=== PATIENT | male | born 1955 | race Caucasian/White ===

== ENCOUNTER 2021-12-26 17:48 | Emergency (ER) | payer MEDICARE | END 2021-12-26 19:13 | disposition home or self-care (01) | LOC: CSHERS 17:48 | DX: S91.332A Puncture wound without foreign body, left foot, initial encounter (principal); E11.40 Type 2 diabetes mellitus with diabetic neuropathy, unspecified; E11.9 Type 2 diabetes mellitus without complications; I10 Essential (primary) hypertension; I25.10 Atherosclerotic heart disease of native coronary artery without angina pectoris; W22.8XXA Striking against or struck by other objects, initial encounter | CPT/HCPCS: 90471 ==

== ENCOUNTER → 2023-02-16 | Day surgery (SDC) | payer MEDICARE, OTHER ==
[~2023-02-16] MED LIST: Acetylcysteine 800 MG/4 ML VIAL ONE; Adenosine 6 MG/2 ML VIAL ONE; Atropine Sulfate 0.4 mg/1 ml Vial ONE; Fentanyl 100 MCG/2 ML VIAL ONE; Heparin 10,000 UNITS/ 10 ML VIAL ONE; Iopamidol 300 61% 100 ML VIAL FS ONE; Lidocaine 1% (PF) 30 ML VIAL ONE; Lidocaine 1% MPF 2 ML VIAL ONE; Midazolam HCl 2 mg/2 ml Vial ONE; Nitroglycerin 50 MG/250 ML BOT 250 ML ONE; Sodium Chloride 0.9% 1,000 ML ONE; TICAGRELOR 90 MG TABLET ONE; Verapamil 5 MG/2 ML VIAL ONE
[2023-02-16 06:36] LABS: Hemoglobin 12.4 g/dL (13.5-17.5); MDiff Complete? YES; Mean Corpuscular HGB CONC 32.5 g/dL (32.0-36.0); Mean Corpuscular Hemoglobin 32.2 pg (27.0-33.0); Mean Platelet Volume 9.4 fl (7.4-10.4); Platelet Count 261 10x3/uL (150-450); RBC Distribution Width 14.5 % (11.5-14.5); Red Blood Cell (RBC) Count 3.85 10x6/uL (4.32-5.72); White Blood Cell (WBC) Count 7.1 10x3/uL (3.5-10.5)
[2023-02-16 06:47] LABS: PTT 25.9 sec (22.0-33.0); Prothrombin Time 10.9 sec (9.5-12.1)
[2023-02-16 06:50] LABS: Anion Gap 16 mmol/L (10-20); BUN (Urea Nitrogen) 44 mg/dL (8.4-25.7); Calc. Creatinine Clearance 0 mL/min (70-130); Calcium 9.6 mg/dL (7.8-10.44); Carbon Dioxide 15 mmol/L (23-31); Chloride 110 mmol/L (98-107); Estimated GFR 43; Glucose 263 mg/dL (80-115); Potassium 5.2 mmol/L (3.5-5.1); Sodium 136 mmol/L (136-145)
[2023-02-16 06:55] VITALS: TEMP 98
[2023-02-16 06:55] LABS: Band 4 % (5-11); Lymphocytes 6 % (21-51); Monocytes 2 % (0-10); Neutrophil 88 % (42-75)
[2023-02-16 06:56] LABS: Platelet Morphology Comment Appears Adequate; RBC Morphology Normal
== END ==
LOC: CSHSDC 05:53
PROVIDERS: ATTEND Specialist
DX: I25.10 Atherosclerotic heart disease of native coronary artery without angina pectoris (principal); E11.9 Type 2 diabetes mellitus without complications; I10 Essential (primary) hypertension; I65.21 Occlusion and stenosis of right carotid artery; E66.9 Obesity, unspecified; G47.00 Insomnia, unspecified; E78.00 Pure hypercholesterolemia, unspecified; K21.9 Gastro-esophageal reflux disease without esophagitis; F32.A Depression, unspecified; E78.2 Mixed hyperlipidemia; I70.293 Other atherosclerosis of native arteries of extremities, bilateral legs; Z91.041 Radiographic dye allergy status; Z79.82 Long term (current) use of aspirin; Z79.84 Long term (current) use of oral hypoglycemic drugs; Z79.899 Other long term (current) drug therapy; Z90.49 Acquired absence of other specified parts of digestive tract; Z98.61 Coronary angioplasty status
CPT/HCPCS: 80048; 85025; 85347 ×2; 85610; 85730; 93454; C1725; C1760; C1769 ×2; C1874 ×2; C1887; C9600; 92928; 93005; 99152; 99153; J0153; J0461; J1644; J2001; J2250; J3010; J7050; Q9967

== ENCOUNTER 2023-05-25 10:15 | Outpatient (CLI) | payer MEDICARE, OTHER | END 2023-05-25 10:16 | disposition home or self-care (01) | LOC: CSHRAD 10:15 | PROVIDERS: ATTEND Neurological Surgery | DX: S32.030D Wedge compression fracture of third lumbar vertebra, subsequent encounter for fracture with routine healing (principal) | CPT/HCPCS: 72100 ==

== ENCOUNTER 2023-06-20 10:46 | Outpatient (CLI) | payer MEDICARE, OTHER | END 2023-06-20 10:47 | disposition home or self-care (01) | LOC: CSHRAD 10:46 | PROVIDERS: ATTEND Neurological Surgery | DX: M54.50 Low back pain, unspecified (principal); M48.56XD Collapsed vertebra, not elsewhere classified, lumbar region, subsequent encounter for fracture with routine healing | CPT/HCPCS: 72100 ==

== ENCOUNTER 2025-04-03 09:00 | Observation (INO) | payer MEDICARE ==
[2025-04-03 09:31] VITALS: BMI 36.9
[2025-04-07] MEDS ORDERED: Midazolam HCl 2 mg/2 ml Vial ONE (06:17)
[2025-04-07] MEDS ORDERED: Fentanyl 100 MCG/2 ML VIAL ONE ×3 (06:17→07:40)
[2025-04-07] MEDS ORDERED: PROPOFOL 20 ML ONE (06:17)
[2025-04-07] MEDS ORDERED: Bupivacaine HCl 0.5%/Epinephrine 1:200,000/PF 30 ml Vial ONE ×2 (06:35→06:43)
[2025-04-07] MEDS ORDERED: Ketorolac Tromethamine 30 MG (1 mL) VIAL ONE ×2 (06:36→08:46)
[2025-04-07] MEDS ORDERED: Tranexamic Acid 1,000 MG/10 ML VIAL ONE (06:36)
[2025-04-07] MEDS ORDERED: Calcium Chloride 1 GM/10 ML Abboject SYRINGE ONE (06:36)
[2025-04-07] MEDS ORDERED: Bupivacaine/Epinephrine 0.25% 30 ML VIAL ONE (06:36)
[2025-04-07] MEDS ORDERED: Lidocaine 1% MPF 2 ML VIAL ONE (06:43)
[2025-04-07] MEDS ORDERED: CEFAZOLIN 2 GM VIAL ONE (07:00)
[2025-04-07] MEDS ORDERED: ePHEDrine Sulfate 50 MG/10 ML VIAL ONE (07:22)
[2025-04-07] MEDS ORDERED: Ondansetron PF 4 MG/2 ML Vial ONE ×2 (08:44→10:12)
[2025-04-07] MEDS ORDERED: Ondansetron HCl/PF 4 MG/2 ML Vial IVP PRN (09:01)
[2025-04-07] MEDS ORDERED: HYDROmorphone 0.5 MG/0.5 ML SYR SLOW IVP PRN (09:01)
[2025-04-07] MEDS ORDERED: Fentanyl 100 MCG/2 ML VIAL SLOW IVP PRN (09:01)
[2025-04-07] MEDS ORDERED: Zolpidem Tartrate 5 MG TAB PO PRN (09:23)
[2025-04-07] MEDS ORDERED: Ondansetron PF 4 MG/2 ML Vial IM PRN (09:23)
[2025-04-07] MEDS ORDERED: Morphine 2 MG/ML VIAL SLOW IVP PRN (09:23)
[2025-04-07] MEDS ORDERED: HYDROcodone/Acetaminophen 10/325 mg Tablet PO PRN (09:23)
[2025-04-07] MEDS ORDERED: Benzocaine/Menthol 1 LOZ LOZ PO PRN (09:23)
[2025-04-07] MEDS ORDERED: Morphine 4 MG/ML VIAL SLOW IVP PRN (09:23)
[2025-04-07] MEDS ORDERED: Glucagon 1 MG/ML KIT IM PRN (10:00)
[2025-04-07] MEDS ORDERED: Insulin Lispro 100 UNIT/ML 10 ML VIAL SC PRN ×2 (10:00→16:26)
[2025-04-07] MEDS ORDERED: Dextrose 50% Abboject 50 ML SYRINGE SLOW IVP PRN (10:00)
[2025-04-07] MEDS ORDERED: Dextrose 5% in Water 1,000 ML IV PRN (10:00)
[2025-04-07] MEDS: HYDROcodone/Acetaminophen 10/325 mg Tablet PO PRN (12:38)
[2025-04-07] MEDS: CEFAZOLIN 2 GM in Sodium Chloride 0.9% 100 ML IVPB SCH (15:23)
[2025-04-07] MEDS: Rosuvastatin 20 MG TAB PO SCH (21:32)
[2025-04-07] MEDS: Aspirin 81 mg Enteric Coated Tablet PO SCH (21:32)
[2025-04-07] MEDS: Lantus 1000 UNITS/10 ML VIAL SC SCH (21:32)
[2025-04-08 03:33] LABS: Hematocrit 28.9 % (38.8-50.0); Hemoglobin 9.1 g/dL (13.5-17.5); Mean Corpuscular HGB CONC 31.5 g/dL (32.0-36.0); Mean Corpuscular Hemoglobin 34.5 pg (27.0-33.0); Mean Corpuscular Volume 109.5 fL (81.2-95.1); Mean Platelet Volume 9.8 fL (7.4-10.4); Platelet Count 172 10x3/uL (150-450); RBC Distribution Width 14.2 % (11.5-14.5); Red Blood Cell (RBC) Count 2.64 10x6/uL (4.32-5.72); White Blood Cell (WBC) Count 7.39 10x3/uL (3.5-10.5)
[2025-04-08] MEDS: Clopidogrel Bisulfate 75 MG TAB PO SCH (08:15)
[2025-04-08] MEDS: Sertraline 100 MG TAB PO SCH (08:16)
[2025-04-08] MEDS: Ezetimibe 10 MG TAB PO SCH (08:16)
[2025-04-08] MEDS: Lisinopril 20 MG TAB PO SCH (08:16)
[2025-04-08] MEDS: Pioglitazone HCl 45 MG TAB PO SCH (08:16)
[2025-04-08] MEDS: Empagliflozin 10 MG TAB PO SCH (08:16)
[2025-04-08] MEDS: metFORMIN 500 MG TAB PO SCH (08:17)
[2025-04-08] MEDS ORDERED: traMADol HCl 50 MG TAB PO PRN (08:30)
[2025-04-08] MEDS: traMADol HCl 50 MG TAB PO PRN (09:06)
[2025-04-08] MEDS: Ondansetron PF 4 MG/2 ML Vial IVP PRN (09:37)
[2025-04-08 12:14] VITALS: BP 105/47; TEMP 98.8
== END 2025-04-08 16:02 | disposition home or self-care (01) ==
LOC: CSHTELE 04-07 05:40 → INTOOBSV 04-07 05:40 → CSHTELE 04-07 10:39
PROVIDERS: ADMIT Orthopaedic Surgery; ATTEND Orthopaedic Surgery
PROC: 0SRD0JZ Replacement of Left Knee Joint with Synthetic Substitute, Open Approach (ICD-10-PCS; principal; 2025-04-07)
DX: M17.12 Unilateral primary osteoarthritis, left knee (principal); Z91.041 Radiographic dye allergy status; Z79.899 Other long term (current) drug therapy
CPT/HCPCS: 27447; 73560; 82962; 85027; 94760 ×2; 97110 ×2; 97116 ×2; C1776; J1815; J1885; J2250; J2405 ×2; J2704; J3010; 36415; 36416